=== PATIENT | male | born 1955 | race Caucasian/White ===

== ENCOUNTER → 2016-05-01 | Outpatient (CLI) | payer OTHER ==
[~2016-05-01] MED LIST: ADVIN10/60 INH; ALBU1AER9 INH; ASPI325T45 PO; CHOL100010 PO; CPR500 PO; LISI-788 PO; MTR500 PO; MTR600X PO; NTRGSL/4 UT; PRLSR20 PO; TPRSR/25 PO
--- NOTE | 2016-05-02 06:29 | PAP/PSG TECHNICIAN REPORT ---
[facility] Personal Financial Representative Polysomnogram Report Study name: None Report date: 05/02/2016 Study date: 05/01/2016 Referring Physician: Laura CASTILLO M.D. Name: NICOLE TOVAR Interpreting Physician: Marco A Castillo M.D. Date of : 1955 Personal Financial Representative: Royer Melchor RPSGT. Sex: Male Age: 60 StudyType: PSG Weight: 208 lbs 16.5 inches Height: 60 years, Height 5' 11.5" Neck Circum: BMI: 28.6 Medications: CHOLECALCIFEROL 1000 UNITS, ASPIRIN 325 MG, REVATIO 20 MG, NITROSTAT 0.4 MG, TOPROL XL 25 MG, ZESTORETIC 20-25 MG, PROAIR HFA 108 (90 BASE), PRILOSEC 20 MG, MOTRIN 600 MG, ADVAIR DISKUS Patient History PATIENT HAS HISTORY OF LOUD SNORING, DAYTIME FATIGUE AND WILL OCCASIONALLY HAVE DIFFICULTY MAINTAINING SLEEP. HE WILL ALSO HAVE SOME EPISODES OF DROWSY DRIVING. HE IS HERE TODAY FOR AN EVALUATION OF KAZ. ESS = 8 RM 2 Parameters Monitored NPSG: E1-M2, E2-M1, Fp1-M2, Fp2-M1, F3-M2, F4-M2, F4-M1, C3-M2, C4-M2, C4-M1, O1-M2, O2-M2, O2-M1, T3-M2, T4-M1, P3-M2, P4-M1, CHIN1, CHIN2, HR, EKG, Legs, PFLOW, SNOR, FLOW, CFLOW, Tidal Volume, THOR, ABDO, SpO2, PLTH, CPRESS, ETCO2 Wave, ETCO2, pH Sleep Architecture Sleep Stages Time at Lights Off 10:29:03 PM STAGES Time (min.) TST (%) Time at Lights On 5:37:03 AM Wake 37.0 -- Total Recording Time (TRT) 428.50 min. N1 14.5 4 Total Sleep Period (TSP) 409.0 min. N2 229.0 59 Total Sleep Time (TST) 391.0min. N3 71.5 18 Awake Time 37.0 min. REM 76.0 19 Wake after Sleep Onset 18.0 min. Sleep Efficiency (SE) 91 % Sleep Onset Latency (LISA) 19.0 min. Number of Stage 1 Shifts None Awakenings 12 Stage Changes 70 Number of REM periods 6 REM 76.0 19 REM Latency 100.5 min. NREM 315.0 81 Body Position Analysis Supine Right Left Side Prone Vertical Total Sleep Time (min.) 144.8 76.4 198.6 275.06 0.0 0.0 Total Sleep Time (%) 30% 20% 51% 70 0% N/A% Total Sleep Time REM (min.) 0.0 31.5 44.5 None 0.0 0.0 Total Sleep Time NREM (min.) 115.9 44.9 154.1 None 0.0 0.0 Intermittent Wake (min.) 28.9 3.5 4.6 None 0.0 0.0 Total Sleep Period (%) 31% None None None None None Arousals Myoclonus (PLM) * Events Count Index Events Count Index Spontaneous 37 6 Events Awake (PLMW) 4 6.5 Respiratory 18 2.8 Events Asleep w/ Arousal (PLMA) 4 0.6 PLM 4 1 Events Asleep w/o Arousal (PLMS) 82 12.6 Snoring 6 1 Total Asleep 86 13.2 Total 64 10 Total 90 13 Respiratory Analysis * CA OA MA CH H RERA Total Count 1 0 0 0 70 5 71 Index 0.2 0.0 0.0 0 10.7 1 11.7 Mean Duration 15.9 0.0 0.0 0.00 21.4 16.2 21.0 Longest Duration 15.9 0.0 0.0 0.00 0.0 20.4 59.4 Respiratory Event Summary Total Supine ~Supine Right Left Prone REM NREM Apneas Count 1 0 1 1 0 N/A 1 0 Index 0.2 0 0 0.8 0.0 N/A 1 0 Hypopneas (4% Desat) Count 70 36 34 17 17 N/A 25 45 Index 10.7 18.6 7 13.3 5.1 N/A 19.7 8.6 Apneas & All Hypopneas Count 71 36 35 18 17 N/A 26 45 Index 10.9 19 8 14 5 N/A 20.5 8.6 Respiratory Events (Channel Process Supervisor+All Hyp+RERA) Count 71 37 39 20 19 N/A 26 45 Index 11.7 19 9 15.7 5.7 N/A 20.5 9.5 Respiratory Related Arousal Count 18 37 6 3 3 N/A 1 17 Index 2.8 6 1 2 1 N/A 1 3 Snoring Analysis Supine Right Left Prone REM NREM Total Snore duration 10.1 min Snores count 468 12 19 N/A 9 490 499 Snore mean duration 1.2 Sec Snores index 242 9 6 N/A 7.1 93.3 76.6 TST with snoring (%) 2.6% Desaturation Event Summary: Minimum %SpO2 Event Count Mean/Min/Max Duration(sec.) Desaturation Index % Time In Bed > 90 69 31.0 / 13.5 / 60.0 20.8 46.4 86 - 90 9 30.1 / 18.3 / 47.1 2.4 53.5 81 - 85 0 N/A 0.0 0.1 76 - 80 0 N/A 0.0 0.0 71 - 75 0 N/A 0.0 0.0 66 - 70 0 N/A 0.0 0.0 61 - 65 0 N/A 0.0 0.0 56 - 60 0 N/A 0.0 0.0 51 - 55 0 N/A 0.0 0.0 < 50 0 N/A 0.0 0.0 Total REM NREM Awake <50% 0.0 min. 0.0 min. 0.0 min. 0.0 min. 51 - 60% 0.0 min. 0.0 min. 0.0 min. 0.0 min. 61 - 70% 0.0 min. 0.0 min. 0.0 min. 0.0 min. 71 - 80% 0.0 min. 0.0 min. 0.0 min. 0.0 min. 81 - 90% 229.1 min. 26.1 min. 199.5 min. 3.6 min. 91 - 100% 198.7 min. 50.0 min. 115.5 min. 33.2 min. Average 91 91 90 93 Minimum SpO2 85 86 85 88 Desaturation Event Index 10.0 20.5 8.8 0.0 # Desat. Events below 89% 24 8 16 N/A Time(%) with Saturation below 89% 8.1 0.4 7.7 0.1 Time(min.) with Saturation below 89% 34.8 1.5 32.7 0.5 Time (mins) REM (mins) NREM (mins) % of TST SpO2 Below 90% 68 25 N43 23.8 SpO2 Below 88% 12 0 0 2 Heart Rate Analysis Min (bpm) Max (bpm) Average (bpm) Awake 53 91 62 NREM 51 86 58 REM 54 85 61 Overall 51 86 59 Supplemental O2 Values Minimum O2 level: None Value Start Time End Time Personal Financial Representative Comments Mr. Tovar slept in the right, left and supine positions. No cardiac arrhythmia noted. Leg movements noted. No bruxism noted. Snoring was noted and scored as a 1 on a scale of 1 through 5. (0=no snoring, 5=snoring loud enough to be heard through a closed door or down the [address] way) Mr. Tovar awoke to use the restroom 0 times during the night. Mr. Tovar stated I did not sleep as well as I do when I am in my own bed. The final report will be interpreted and signed by a sleep physician. The completed physician report will then be placed in the patient medical record. Therapy (cm H2O) 0 TIB (min.) 428.0 TST (min.) 391.0 Sleep Onset (min.) 19.0 REM Onset From Sleep (min.) 100.5 Sleep Efficiency % 91 Wakefulness (%) 9 Wakefulness (min.) 37.0 NREM 1 (%) 4 NREM 1 (min.) 14.5 NREM 2 (%) 59 NREM 2 (min.) 229.0 NREM 3 (%) 18 NREM 3 (min.) 71.5 REM (%) 19 REM (min.) 76.0 # Arousals 64 Arousal Index 10 # Snore 499 Snore Index 76.6 AHI 10.9 AHI Supine 19 AHI Non-Supine 8 NREM AHI 8.6 REM AHI 20.5 RDI 11.7 # Obstructive Apnea 0 # Central Apnea 1 # Mixed Apnea 0 # Hypopneas 70 RERAs 5 Total Respiratory Events 76 Time Below SpO2 89% (min.) 34.3 Mean NREM SpO2 (%) 90 Mean REM SpO2 (%) 91 Mean Sleep SpO2 (%) 90 Min NREM SpO2 (%) 85 Min REM SpO2 (%) 86 Position Supine (min.) 144.8 Position Non-supine (min.) 275.1 LM Index Sleep 13.2 LM Index NREM 9.5 LM Index REM 28.4 Mean Heart Rate (bpm) 59 Min Heart Rate (bpm) 51
--- NOTE | 2016-05-06 21:20 | POLYSOMNOGRAPH REPORT ---
REFERRING PERSON: Marco A Castillo MD HEAD REFRIGERATING ENGINEER: Royer Melchor. Mr. Hess is a 60-year-old male with a history of loud snoring, daytime fatigue and some sleep maintenance insomnia. He admits 2 episodes of drowsy driving. His Lawrence sleepiness scale score on the evening of this study is 8. BMI is 28.6. Following the technical and digital specifications of the [place] [employer] (AASM), a standard diagnostic polysomnogram was performed monitoring EEG, EOG, EMG (chin and leg deviations), oxygen saturation, body position, digital video, respiratory effort and airflow. The sleep Stage and event Scoring was based on the AASM Manual for the Scoring of Sleep and Associated Events, 2007 edition. Apneas are defined as a drop in the peak thermal sensor excursion by >90% of baseline for at least 10 seconds. Hypopneas were scored using the 4% oxygen desaturation rule (4A-[employer]) and a decrease in the nasal pressure excursions by >30% of baseline for at least 10 seconds. Respiratory effort-related arousal (RERA) is defined as a sequence of breaths lasting at least 10 seconds characterized by increasing respiratory effort or flattening of the nasal pressure waveform leading to an arousal from sleep when the sequence of breaths does not meet criteria for an apnea or hypopnea. Apnea Hypopnea index (AHI) is defined as the number of apneas and hypopneas occurring in an hour of sleep. Respiratory disturbance index (RDI) is defined as the number of apneas, hypopneas and RERA's occurring in an hour of sleep. Mr. Hess's total sleep period time was 409 minutes. Total sleep time was 391 minutes. Sleep efficiency was 91%. Latency to sleep onset was 19 minutes with wake after sleep onset of 18 minutes. Total non-REM sleep time was 315 minutes. He spent 4% of that time in N1 sleep, 59% in N2 sleep and 18% in N3 sleep. REM latency was 100.5 minutes. Total REM sleep time was 76 minutes or 19% of total sleep time. There were 64 cortical arousals from sleep. Thirty-seven of these arousals were spontaneous, 18 were due to respiratory events, 4 due to periodic limb movements of sleep and 6 were due to snoring. There were 86 periodic limb movements noted on this test. Limb movement index was 13.2. Limb movement with arousal index was 0.6. There was one central, no obstructive and no mixed apneas on this test. There were 70 hypopneas and 5 RERA's. Apnea-hypopnea index was 10.1 consistent with mild sleep apnea. Supine AHI was 19, REM AHI was 20.5. There were 499 snoring events recorded on this test. Total sleep time with snoring was 2.6%. Mean saturation during sleep was 91% with desaturations to 85%. Saturations were less than 89 for 34.8 minutes of recorded time. This is significant nocturnal hypoxemia. Heart rates during sleep ranged from a low of 51 beats per minute to a high of 86 beats per minute. No cardiac ectopy was noted. IMPRESSION AND PLAN: A 60-year-old male with evidence of mild sleep apnea, worse in supine sleep, with nocturnal hypoxemia. 1. This patient would likely benefit from positive airway pressure therapy. He should return to the sleep lab for a full night titration and then based on those results be started on equipment at home. A download from his machine should be reviewed in one month; both to check compliance as well as AHI and further pressure adjustments can occur at that time. 2. Alternatively, this patient could be started on an auto titrating CPAP with pressures of 5-15 cm. A download from his machine can be reviewed in one month and he can be set to optimal pressure at that time. An n.p.o. on optimal pressure can ensure that his hypoxemia resolves with CPAP alone. 3. Should this patient be unwilling or unable to tolerate CPAP therapy, he could be referred to ear, nose and throat or oral surgery/dental medicine (if appropriate) to discuss alternative treatments for sleep disordered breathing.
== END | disposition home or self-care (01) ==
LOC: C.NEUR 21:00
PROVIDERS: ATTEND Family Medicine
DX: G47.30 Sleep apnea, unspecified (principal); R09.02 Hypoxemia; R06.83 Snoring; G47.10 Hypersomnia, unspecified

== ENCOUNTER → 2016-05-23 | Day surgery (SDC) | payer OTHER ==
[2016-05-18 08:02] VITALS: Ht 180.3 cm; Wt 93.2 kg
[~2016-05-23] VITALS: Ht 180.3 cm; Wt 93.2 kg
[~2016-05-23] MED LIST changes: -CPR500 PO; +LIDOCAINE HCL 2% 2 ML VIAL (20MG/ML) ONE; +MIDAZOLAM HCL 1 MG/ML 2ML VIAL ONE; -MTR500 PO; -MTR600X PO; +ONDANSETRON INJ 2 MG/ML 2 ML VIAL ONE; +PROPOFOL IV EMULSION 10 MG/ML 20 ML VIAL IV ONE; +SODIUM CHLORIDE 0.9% 500ML 500 ML IV ONE
[2016-05-23 14:35] VITALS: TEMP 36.8
--- NOTE | 2016-05-23 15:18 | Endo History and Physical ---
History & Physical Date of Service: May 23, 2016. Chief Complaint: reflux and hoarseness Referring Physician: Dr. Baldomero Rice History of Present Illness 60 yo CM who presents for EGD secondary to GERD and Hoarseness. Past Surgical History Hx Cardiac Surgery: Yes (HEART CATH-NO STENTS) Hx Internal Defibrillator: No Hx Pacemaker: No Hx Abdominal Surgery: Yes (INGUINAL HERNA, UMBILICAL HERNIA) Hx of Implantable Prosthesis: No Hx Post-Op Nausea and Vomiting: No Hx Cancer Surgery: No Hx Thoracic Surgery: No Hx Orthopedic: No Hx Urinary Tract Surgery: Yes (HOLEP (PROSTATE), VASECTOMY) Family History None Social History Smoking Status: Former Smoker Hx Substance Use: No Hx Alcohol Use: Yes (OCCASSIONALLY) Allergies Coded Allergies: No Known Allergies (Verified , 05/23/16) Current Medications Reported Home Medications Medications Dose Route/Sig Max Daily Dose Days Date Category Dose Instructions Advair Diskus 100/50 60 Dose (Fluticasone Prop/Salmeterol) 1 Ea Aerp 1 Puff INH BID PRN 05/18/16 Reported Vitamin D (Cholecalciferol) 1,000 Unit Tab 1 Tab PO QAM 05/18/16 Reported Aspirin 325 Mg Tab 325 Mg PO QAM 02/02/16 Reported Prilosec (Omeprazole) 20 Mg Capcr 20 Mg PO QAM 09/04/15 Reported Zestoretic 20MG/25MG (HCTZ/Lisinopril) Tab 1 Tab PO QAM 09/04/15 Reported Proair Hfa (Albuterol) Aers 2 Puffs INH QID PRN 03/23/14 Reported Metoprolol Succinate ER (Metoprolol Succinate) 25 Mg Tabcr 75 Mg PO QAM 03/23/14 Reported Nitrostat (Nitroglycerin) 0.4 Mg Tab 0.4 Mg UT UD PRN 05/24/[address] ONE TABLET UNDER THE TONGUE EVERY 5 MINUTES NEEDED. Vital Signs Weight (Kilograms): 93.18 Height (Feet): 5 Height (Inches): 11 Date Time Temp Pulse Resp B/P Pulse Ox O2 Delivery O2 Flow Rate FiO2 05/23/16 14:40 162/96 05/23/16 14:35 36.8 72 20 175/101 99 Room Air Physical Exam General Appearance: WD/WN, no apparent distress Respiratory/Chest: Auscultation: breath sounds normal Cardiovascular: Heart Auscultation: RRR Abdomen: Bowel Sounds: normal Inspection & Palpation: soft, non-distended, no tenderness, guarding & rebound Assessment and Plan Assessment: 60 yo CM who presents for EGD with Duran pH monitor secondary to GERD and Hoarseness. Plan: Proceed with EGD
[2016-05-23 16:11] VITALS: BP 122/91; PULSE 69; O2SAT 96
--- NOTE | 2016-05-23 16:26 | GI REPORT ---
Procedure Date: 05/23/2016 2:53 PM Procedure: Upper GI endoscopy Indications: Suspected gastro-esophageal reflux disease, Laryngitis Medicines: Monitored Anesthesia Care Complications: No immediate complications. Estimated Blood Loss: Estimated blood loss: none. Procedure: Pre-Anesthesia Assessment: - Prior to the procedure, a History and Physical was performed, and patient medications and allergies were reviewed. The patient's tolerance of previous anesthesia was also reviewed. The risks and benefits of the procedure and the sedation options and risks were discussed with the patient. All questions were answered, and informed consent was obtained. Prior Anticoagulants: The patient has taken no previous anticoagulant or antiplatelet agents. ASA Grade Assessment: III - A patient with severe systemic disease. After reviewing the risks and benefits, the patient was deemed in satisfactory condition to undergo the procedure. After obtaining informed consent, the endoscope was passed under direct vision. Throughout the procedure, the patient's blood pressure, pulse, and oxygen saturations were monitored continuously. The scope was introduced through the mouth, and advanced to the second part of duodenum. The upper GI endoscopy was accomplished without difficulty. The patient tolerated the procedure well. Findings: The DENNIS capsule with delivery system was introduced through the mouth and advanced into the esophagus, such that the DENNIS pH capsule was positioned 35 cm from the incisors, which was 6 cm proximal to the EG junction. Suction was applied to the well of the DENNIS pH capsule to suck in the adjacent mucosa of the esophagus using the external vacuum pump for 60 seconds. The DENNIS pH capsule was then deployed by depressing the plunger on top of the handle to advance the locking pin into the mucosa, thereby attaching the capsule to the esophagus. The plunger was then rotated a quarter turn clockwise to release the capsule from the delivery system. The delivery system was then withdrawn. Endoscopy was utilized for probe placement and diagnostic evaluation. Localized mild inflammation characterized by erythema was found in the gastric antrum. Biopsies were taken with a cold forceps for histology. The examined duodenum was normal. Impression: - Gastritis. Biopsied. - Normal examined duodenum. - The DENNIS pH capsule was positioned 35 cm from the naris, which was 6 cm proximal to the EG junction. Recommendation: - Resume previous diet. - Continue present medications. - Await pathology results. - Return to GI office as previously scheduled. Guy Samson, 05/23/2016 4:25:06 PM This report has been signed electronically. Note Initiated On: 05/23/2016 2:53 PM I attest to the content of the Intraoperative Record and orders documented therein, exceptions below
--- NOTE | 2016-05-23 16:28 | Discharge Instructions ---
Endoscopy Patient Instructions Date / Procedure(s) Performed May 23, 2016. EGD Allergy Information Coded Allergies: No Known Allergies (Verified , 05/23/16) Discharge Date / Findings May 23, 2016. Gastritis s/p biopsies Successful placement of Duran pH monitor Medication Instructions Stopped Medication(s): took ASA today Restart Stopped Medication(s): OK to resume all medications today as prescribed Reported Home Medications Medications Dose Route/Sig Max Daily Dose Days Date Category Dose Instructions Advair Diskus 100/50 60 Dose (Fluticasone Prop/Salmeterol) 1 Ea Aerp 1 Puff INH BID PRN 05/18/16 Reported Vitamin D (Cholecalciferol) 1,000 Unit Tab 1 Tab PO QAM 05/18/16 Reported Aspirin 325 Mg Tab 325 Mg PO QAM 02/02/16 Reported Prilosec (Omeprazole) 20 Mg Capcr 20 Mg PO QAM 09/04/15 Reported Zestoretic 20MG/25MG (HCTZ/Lisinopril) Tab 1 Tab PO QAM 09/04/15 Reported Proair Hfa (Albuterol) Aers 2 Puffs INH QID PRN 03/23/14 Reported Metoprolol Succinate ER (Metoprolol Succinate) 25 Mg Tabcr 75 Mg PO QAM 03/23/14 Reported Nitrostat (Nitroglycerin) 0.4 Mg Tab 0.4 Mg UT UD PRN 05/24/[address] ONE TABLET UNDER THE TONGUE EVERY 5 MINUTES NEEDED. Provider Instructions Activity Restrictions - No exercising or heavy lifting for 24 hours. - Do not drink alcohol the day of the procedure. - Do not drive a car or operate machinery until the day after the procedure. - Do not make any important decisions or sign important papers in 24 hours after the procedure. Following Day: - Return to full activity which may include returning to work/school. Diet Start your diet with liquids and light foods (jello, soup, juice, toast). Then eat your usual diet if not nauseated. Treatment For Common After Affects For mild abdominal pain, bloating, or excessive gas: - Rest - Eat lightly - Lie on right side Follow-Up Information Follow-up with Dr. Baldomero Rice as scheduled Anesthesia Information What You Should Know You have had a procedure that required some medicine to reduce anxiety and discomfort. This treatment is called moderate sedation. After receiving the treatment, you may be sleepy, but you will be able to breathe on your own. The effects of the treatment may last for several hours. Follow these instructions along with Activity/Diet recommendations noted above: * Do NOT do anything where dizziness or clumsiness would be dangerous. * Rest quietly at home today, then you can be up and about tomorrow. * Have a responsible person stay with you the rest of today. * You may have had an I.V. today. If so, you may take the dressing off later today. Recommendations Call your doctor if: * Trouble breathing * Continuous vomiting for more than 24 hours * Temperature above 101 degrees * Severe abdominal pain or bloating * Pain not relieved by pain medicine ordered * There is increased drainage or redness from any incision * A large amount of rectal bleeding greater than 2-3 tablespoons. (If you had a polyp/s removed or have hemorrhoids, a small amount of blood - from the rectum is to be expected.) * You have any unanswered questions or concerns. IN THE EVENT OF A SERIOUS EMERGENCY, GO TO THE NEAREST EMERGENCY ROOM Your discharge instructions were prepared by provider Guy Samson. Patient Instructions Signature Page Remington Hess Patient (or Guardian) Signature/Date: I have read and understand the instructions given to me by my caregivers. Caregiver/RN/Doctor Signature/Date: The above-named patient and/or guardian has received patient instructions on this date. + Original Patient Signature Page (only) stays with chart. Please make copy for patient.
--- NOTE | 2016-05-23 16:29 | Anesthesiology Progress Note ---
Anesthesia Post Op Note Date & Time May 23, 2016 at 16:29 Vital Signs Pain Intensity: 0 Vital Signs Past 12 Hours Date Time Temp Pulse Resp B/P Pulse Ox O2 Delivery O2 Flow Rate FiO2 05/23/16 16:11 69 16 122/91 96 Room Air 05/23/16 15:56 73 16 106/74 97 Room Air 05/23/16 15:41 76 16 113/68 94 Nasal Cannula 2 05/23/16 14:40 162/96 05/23/16 14:35 36.8 72 20 175/101 99 Room Air Notes Mental Status: alert / awake / arousable, participated in evaluation Pt Amnestic to Procedure: Yes Nausea / Vomiting: adequately controlled Pain: adequately controlled Airway Patency, RR, SpO2: stable & adequate BP & HR: stable & adequate Hydration State: stable & adequate Anesthetic Complications: no major complications apparent
--- NOTE | 2016-05-28 16:54 | PROGRESS NOTE ---
DATE: 05/23/2016 ADDENDUM: AGE: 60. SEX: Male. RACE: . IMPRESSION AND PLAN: The Duran pH was performed on 05/23/2016. The Duran pH study was performed on antibiotics medications for 48 hours and the data acquisition was sufficient analysis. The total time spent in reflux over the 48-hour period was 2 minutes and the total time pH was less than 4 was 0.1%. The acid exposure based on the DeMeester score was 0.9 on day 1, 0.4 on day 2, and a total DeMeester score of 0.7 with less than or equal to 14.72 was considered normal. A total of 1 symptom was reported and was not associated with reflux. The data received is consistent with normal acid exposure and a negative correlation between symptoms and reflux based on this Duran pH monitor. I would recommend the patient followup with his primary care physician and Dr. Estes for further evaluation of his symptoms. Once again, thanks for allowing me to participate in the care of this patient. If you have any further questions, please do not hesitate in contacting me. CARTER
== END | disposition home or self-care (01) ==
LOC: C.GI 14:08
PROVIDERS: ATTEND Internal Medicine
DX: K29.70 Gastritis, unspecified, without bleeding (principal); K21.9 Gastro-esophageal reflux disease without esophagitis; B96.81 Helicobacter pylori [H. pylori] as the cause of diseases classified elsewhere; J04.0 Acute laryngitis; Z87.891 Personal history of nicotine dependence; Z79.82 Long term (current) use of aspirin; Z95.5 Presence of coronary angioplasty implant and graft; Z98.890 Other specified postprocedural states

== ENCOUNTER → 2016-10-11 | Outpatient (CLI) | payer OTHER ==
[~2016-10-11] MED LIST changes: -LIDOCAINE HCL 2% 2 ML VIAL (20MG/ML) ONE; -MIDAZOLAM HCL 1 MG/ML 2ML VIAL ONE; -ONDANSETRON INJ 2 MG/ML 2 ML VIAL ONE; -PROPOFOL IV EMULSION 10 MG/ML 20 ML VIAL IV ONE; -SODIUM CHLORIDE 0.9% 500ML 500 ML IV ONE
--- NOTE | 2016-10-11 09:00 | DIAGNOSTIC IMAGING REPORT ---
MRI right knee RIGHT LOWER EXT JOINT WITHOUT CLINICAL HISTORY: PRIMARY OA OF RIGHT KNEE Right pain TECHNIQUE: MRI multi axial acquisition COMPARISON STUDY: None FINDINGS: Signal characteristics the osseous structures are unremarkable. Mild/moderate degenerative changes of the articular services of the medial and lateral joint compartments. Mild chondromalacia patella. Partial tear anterior cruciate ligament. Posterior cruciate ligament is intact. Collateral ligaments are unremarkable. Medial and lateral menisci are unremarkable. Very small joint effusion. No evidence for significant popliteal cyst. IMPRESSION: 1. Partial tear anterior cruciate ligament. 2. Moderate degenerative change articular surfaces of the medial and lateral joint compartments. 3. Mild chondromalacia patella. 4. Small joint effusion. Electronically signed by: Baldomero Rosario M.D. 10/11/2016 8:59 AM Dictated Date/Time: 10/11/2016 8:55 AM
== END | disposition home or self-care (01) ==
LOC: C.MRI 08:00
PROVIDERS: ATTEND Orthopaedic Surgery Sports Medicine
DX: M17.9 Osteoarthritis of knee, unspecified (principal); S83.511A Sprain of anterior cruciate ligament of right knee, initial encounter; X58.XXXA Exposure to other specified factors, initial encounter; M22.41 Chondromalacia patellae, right knee